=== PATIENT | male | born 1965 | race African-American/Black ===

== ENCOUNTER 2017-12-02 11:03 | Inpatient (IN) | payer OTHER ==
[2017-12-02 11:57] VITALS: BMI 22.9
--- NOTE | 2017-12-02 13:55 | HP ---
CIWA Score - CIWA Score Nausea/Vomitin-No Nausea/No Vomiting Muscle Tremors: 3 Anxiety: 4-Mod. Anxious/Guarded Agitation: 4-Moderately Restless Paroxysmal Sweats: 1-Minimal Palms Moist Orientation: 1-Uncertain about Date Tacttile Disturbances: 1-Very Mild Itch/Numbness Auditory Disturbances: 0-None Visual Disturbances: 0-None Headache: 1-Very Mild CIWA-Ar Total Score: 15 Admission ROS [facility]HS - HPI Chief Complaint: alcohol withdrawal sx Allergies/Adverse Reactions: Allergies Allergy/AdvReac Type Severity Reaction Status Date / Time No Known Allergies Allergy Verified 12/02/17 13:49 History of Present Illness: 52 years old male with long history of alcohol dependence denies medical issue denies mental health issues denies taking medication nor nutrition supplement at home is admitted to detox Exam Limitations: No Limitations - Ebola screening Have you traveled outside of the country in the last 21 days: No Have you had contact with anyone from an Ebola affected area: No Have you been sick,other than usual withdrawal symptoms: No Do you have a fever: No - Review of Systems Constitutional: Loss of Appetite, Changes in sleep, Weight Stable, Unintentional Wgt. Loss EENT: reports: Blurred Vision (need eye glasses) Respiratory: reports: No Symptoms reported Cardiac: reports: No Symptoms Reported GI: reports: Nausea, Poor Appetite, Poor Fluid Intake, Abdominal cramping : reports: No Symptoms Reported Musculoskeletal: reports: No Symptoms Reported Integumentary: reports: No Symptoms Reported Neuro: reports: Tremors Endocrine: reports: No Symptoms Reported Hematology: reports: No Symptoms Reported Psychiatric: reports: Judgement Intact, Mood/Affect Appropiate, Orientated x3 Other Systems: Reviewed and Negative Patient History - Patient Medical History Hx Anemia: No Hx Asthma: No Hx Chronic Obstructive Pulmonary Disease (COPD): No Hx Cardiac Disorders: No Hx Congestive Heart Failure: No Hx Hypertension: No Hx Hypercholesterolemia: No Hx Pacemaker: No HX Cerebrovascular Accident: No Hx Seizures: No Hx Dementia: No Hx Diabetes: No Hx Gastrointestinal Disorders: No Hx Liver Disease: No Hx Genitourinary Disorders: No Hx Sexually Transmitted Disorders: No Hx Renal Disease (ESRD): No Hx Thyroid Disease: No Hx Human Immunodeficiency Virus (HIV): No Hx Hepatitis C: No Hx Depression: No Hx Suicide Attempt: No Hx Bipolar Disorder: No Hx Schizophrenia: No - Patient Surgical History Past Surgical History: Yes Hx Genitourinary Surgery: Yes (hernia right as child) Anesthesia Reaction: No - PPD History Previous Implant?: Yes Documented Results: Negative w/o proof Implanted On Prior R Admission?: No PPD to be Administered?: Yes - Smoking Cessation Smoking history: Current every day smoker Have you smoked in the past 12 months: Yes Aproximately how many cigarettes per day: 3 Cigars Per Day: 0 Hx Chewing Tobacco Use: No Initiated information on smoking cessation: Yes 'Breaking Loose' booklet given: 12/02/17 - Substance & Tx. History Hx Alcohol Use: Yes Hx Substance Use: Yes Substance Use Type: Alcohol, Marijuana Hx Substance Use Treatment: Yes (2005) - Substances Abused Alcohol-rum/vodka/beer Route: Oral Frequency: Daily Amount used: 1-2 pts./1-6 pk. Age of first use: 17 Date of Last Use: 12/01/17 Family Disease History - Family Disease History Family Disease History: Heart Disease: Mother, Sister, [place]: Father, Other: Father Admission Physical Exam S - Vital Signs Vital Signs: Vital Signs - 24 hr 12/02/17 11:54 Temperature 97.1 F L Pulse Rate 59 L Respiratory 18 Rate Blood Pressure 155/93 - Physical General Appearance: Yes: Appropriately Dressed, Mild Distress, Thin, Tremorous, Irritable, Sweating, Anxious HEENTM: Yes: Hearing grossly Normal, Normocephalic, Normal Voice Respiratory: Yes: Chest Non-Tender, Lungs Clear, Normal Breath Sounds, No Respiratory Distress, No Accessory Muscle Use Neck: Yes: Supple, Trachea in good position Breast: Yes: Breasts Symetrical, No Discharge Cardiology: Yes: Regular Rhythm, S1, S2, Bradycardia Abdominal: Yes: Normal Bowel Sounds, Non Tender, Flat Genitourinary: Yes: Within Normal Limits Back: Yes: Normal Inspection Musculoskeletal: Yes: full range of Motion, Gait Steady Extremities: Yes: Normal Inspection, Normal Range of Motion, Non-Tender, Tremors Neurological: Yes: Fully Oriented, Alert, Normal Response Integumentary: Yes: Normal Color, Warm - Diagnostic (1) Alcohol dependence with uncomplicated withdrawal Current Visit: Yes Status: Acute (2) Weight loss Current Visit: Yes Status: Acute (3) Nicotine dependence, uncomplicated Current Visit: Yes Status: Acute Qualifiers: Nicotine product type: cigarettes Qualified Code(s): F17.210 - Nicotine dependence, cigarettes, uncomplicated [facility] Level of Care: Medically Managed Detox Regimen/Protocol: Lib[facility] Breath Alcohol Content Breath Alcohol Content: 0 Urine Drug Screen - Control Is Test Valid: Yes - Results Drug Screen Negative: No Urine Drug Screen Results: THC-Marijuana, KAY-Cocaine
[2017-12-02] MEDS ORDERED: MAGNESIUM CITRATE 300 ML BOTTLE PO PRN (13:57)
[2017-12-02] MEDS ORDERED: guaiFENesin/D-METHORPHAN HB 10 ML UNIT-DOSE CUPS PO PRN (13:57)
[2017-12-02] MEDS ORDERED: IBUPROFEN 400 MG TABLET (FP) PO PRN (13:57)
[2017-12-02] MEDS ORDERED: chlordiazePOXIDE HCL 25 MG CAPSULE PO PRN (13:57)
[2017-12-02] MEDS ORDERED: NICOTINE POLACRILEX 2 MG GUM BUC PRN (13:57)
[2017-12-02] MEDS ORDERED: LOPERAMIDE HCL 2 MG CAPSULE PO PRN (13:57)
[2017-12-02] MEDS ORDERED: P-EPHED 60MG/TRIPROLIDI 2.5MG TABLET PO PRN (13:57)
[2017-12-02] MEDS ORDERED: ACETAMINOPHEN 325 MG TABLET (FP) PO PRN (13:57)
[2017-12-02] MEDS ORDERED: MENTHOL/PHENOL 1 EACH UD MM PRN (13:57)
[2017-12-02] MEDS ORDERED: MAGNESIUM HYDROX 2400MG/30ML ORAL SUSPENSION 30 ML CUP PO PRN (13:57)
[2017-12-02] MEDS: chlordiazePOXIDE HCL 25 MG CAPSULE PO SCH ×2 (17:44→22:44)
[2017-12-02 18:47] LABS: URINE APPEARANCE CLEAR; URINE BILIRUBIN NEGATIVE (<2.0 mg/dL); URINE COLOR LTYELLOW; URINE GLUCOSE (UA) NEGATIVE (NEGATIVE); URINE KETONE NEGATIVE (NEGATIVE); URINE LEUK ESTERASE NEGATIVE (NEGATIVE); URINE NITRITE NEGATIVE (NEGATIVE); URINE PROTEIN NEGATIVE (NEGATIVE)
[2017-12-02] MEDS ORDERED: MELATONIN 5 MG TABLETS PO PRN (22:00)
[2017-12-02] MEDS: THIAMINE HCL 100 MG TABLET (FP) PO SCH (22:44)
[2017-12-03] MEDS: chlordiazePOXIDE HCL 25 MG CAPSULE PO SCH ×3 (05:11→17:22)
[2017-12-03 10:13] LABS: HEMATOCRIT 40.4 % (35.4-49); HEMOGLOBIN 13.3 GM/dL (11.7-16.9); MCH 30.2 pg (25.7-33.7); MCHC 32.8 g/dl (32.0-35.9); MEAN CELL VOLUME 92.1 fl (80-96); MEAN PLT VOLUME 9.5 fl (7.5-11.1); PLATELET COUNT 233 K/MM3 (134-434); RBC 4.38 M/mm3 (4.00-5.60); RDW 14.5 % (11.9-15.9); WHITE BLOOD COUNT 4.6 K/mm3 (4.0-10.0)
[2017-12-03] MEDS: PRENATAL VITAMINS W/ FOLIC ACID TABLET (FP) PO SCH (10:15)
[2017-12-03] MEDS: NICOTINE 14 MG/24 HOURS TOPICAL PATCH TD SCH (10:15)
[2017-12-03 10:46] LABS: ALBUMIN 3.2 g/dl (3.4-5.0); ANION GAP 6 (8-16); BLOOD UREA NITROGEN 13 mg/dL (7-18); CALCIUM 8.4 mg/dL (8.5-10.1); CHLORIDE 107 mmol/L (98-107); CO2 28 mmol/L (21-32); GLUCOSE,RANDOM 92 mg/dL (74-106); POTASSIUM 4.3 mmol/L (3.5-5.1); SGOT/AST 22 U/L (15-37); SGPT/ALT 26 U/L (12-78); SODIUM 141 mmol/L (136-145)
[2017-12-03 10:48] LABS: ALK PHOS 77 U/L (45-117); BILIRUBIN,TOTAL 0.3 mg/dL (0.2-1.0); TOT PROT 5.9 g/dl (6.4-8.2)
--- NOTE | 2017-12-03 10:49 | PN ---
S CIWA - CIWA Score Nausea/Vomitin-Mild Nausea/No Vomiting Muscle Tremors: 4-Moderate,w/Arms Extend Anxiety: 3 Agitation: 4-Moderately Restless Paroxysmal Sweats: 1-Minimal Palms Moist Orientation: 0-Oriented Tacttile Disturbances: 1-Very Mild Itch/Numbness Auditory Disturbances: 0-None Visual Disturbances: 0-None Headache: 0-None Present CIWA-Ar Total Score: 14 BHS Progress Note (SOAP) Subjective: sweat tremor anxiety restlessness irritable Objective: 12/03/17 10:48 Vital Signs Temperature 97 F L 12/03/17 09:26 Pulse Rate 61 12/03/17 09:26 Respiratory Rate 18 12/03/17 09:26 Blood Pressure 142/82 12/03/17 09:26 O2 Sat by Pulse Oximetry (%) Laboratory Last Values WBC 4.6 K/mm3 (4.0-10.0) 12/03/17 07:37 RBC 4.38 M/mm3 (4.00-5.60) 12/03/17 07:37 Hgb 13.3 GM/dL (11.7-16.9) 12/03/17 07:37 Hct 40.4 % (35.4-49) 12/03/17 07:37 MCV 92.1 fl (80-96) 12/03/17 07:37 MCH 30.2 pg (25.7-33.7) 12/03/17 07:37 MCHC 32.8 g/dl (32.0-35.9) 12/03/17 07:37 RDW 14.5 % (11.9-15.9) 12/03/17 07:37 Plt Count 233 K/MM3 (134-434) 12/03/17 07:37 MPV 9.5 fl (7.5-11.1) 12/03/17 07:37 Urine Color Ltyellow 12/02/17 17:30 Urine Appearance Clear 12/02/17 17:30 Urine pH 6.0 (5.0-8.0) 12/02/17 17:30 Ur Specific [place] 1.020 (1.001-1.035) 12/02/17 17:30 Urine Protein Negative (NEGATIVE) 12/02/17 17:30 Urine Glucose (UA) Negative (NEGATIVE) 12/02/17 17:30 Urine Ketones Negative (NEGATIVE) 12/02/17 17:30 Urine Blood Negative (NEGATIVE) 12/02/17 17:30 Urine Nitrite Negative (NEGATIVE) 12/02/17 17:30 Urine Bilirubin Negative (<2.0 mg/dL) 12/02/17 17:30 Urine Urobilinogen 2.0 mg/dL (0.2-1.0) 12/02/17 17:30 Ur Leukocyte Esterase Negative (NEGATIVE) 12/02/17 17:30 lab noted Assessment: 12/03/17 10:49 withdrawal sx Plan: continue detox
[2017-12-03] MEDS ORDERED: PNEUMOCOCCAL 23 VACCINE 0.5 ML VIAL IM ONE (12:00)
[2017-12-03] MEDS ORDERED: PNEUMOC 13-VAL CONJ-DIP CRM/PF 0.5 ML DISP.SYRIN IM ONE (12:00)
--- NOTE | 2017-12-03 12:09 | EKG ---
Test Reason : Blood Pressure : / mmHG Vent. Rate : 054 BPM Atrial Rate : 054 BPM P-R Int : 148 ms QRS Dur : 072 ms QT Int : 454 ms P-R-T Axes : 073 066 077 degrees QTc Int : 430 ms SINUS BRADYCARDIA VOLTAGE CRITERIA FOR LEFT VENTRICULAR HYPERTROPHY CANNOT RULE OUT SEPTAL INFARCT , AGE UNDETERMINED ABNORMAL ECG Confirmed by MD CORRY, MANDI ([id number]) on 12/03/2017 12:09:17 PM Referred By: Confirmed By:MANDI WHEATLEY MD
[2017-12-03] MEDS: MAG HYDROX/AL HYDROX/SIMETH 30 ML UNIT-DOSE CUP PO PRN (18:52)
[2017-12-03] MEDS: THIAMINE HCL 100 MG TABLET (FP) PO SCH (22:54)
[2017-12-04] MEDS: chlordiazePOXIDE HCL 25 MG CAPSULE PO SCH ×3 (06:00→11:00)
--- NOTE | 2017-12-04 10:08 | PN ---
S CIWA - CIWA Score Nausea/Vomitin-Mild Nausea/No Vomiting Muscle Tremors: 4-Moderate,w/Arms Extend Anxiety: 3 Agitation: 3 Paroxysmal Sweats: 1-Minimal Palms Moist Orientation: 0-Oriented Tacttile Disturbances: 1-Very Mild Itch/Numbness Auditory Disturbances: 0-None Visual Disturbances: 0-None Headache: 0-None Present CIWA-Ar Total Score: 13 BHS Progress Note (SOAP) Subjective: sweat tremor restlessness anxiety irritable Objective: 12/04/17 10:14 Vital Signs Temperature 96.9 F L 12/04/17 09:13 Pulse Rate 66 12/04/17 09:13 Respiratory Rate 16 12/04/17 09:13 Blood Pressure 132/90 12/04/17 09:13 O2 Sat by Pulse Oximetry (%) Laboratory Last Values WBC 4.6 K/mm3 (4.0-10.0) 12/03/17 07:37 RBC 4.38 M/mm3 (4.00-5.60) 12/03/17 07:37 Hgb 13.3 GM/dL (11.7-16.9) 12/03/17 07:37 Hct 40.4 % (35.4-49) 12/03/17 07:37 MCV 92.1 fl (80-96) 12/03/17 07:37 MCH 30.2 pg (25.7-33.7) 12/03/17 07:37 MCHC 32.8 g/dl (32.0-35.9) 12/03/17 07:37 RDW 14.5 % (11.9-15.9) 12/03/17 07:37 Plt Count 233 K/MM3 (134-434) 12/03/17 07:37 MPV 9.5 fl (7.5-11.1) 12/03/17 07:37 Sodium 141 mmol/L (136-145) 12/03/17 07:37 Potassium 4.3 mmol/L (3.5-5.1) 12/03/17 07:37 Chloride 107 mmol/L (98-107) 12/03/17 07:37 Carbon Dioxide 28 mmol/L (21-32) 12/03/17 07:37 Anion Gap 6 (8-16) L 12/03/17 07:37 BUN 13 mg/dL (7-18) 12/03/17 07:37 Creatinine 1.0 mg/dL (0.7-1.3) 12/03/17 07:37 Creat Clearance w eGFR > 60 (>60) 12/03/17 07:37 Random Glucose 92 mg/dL (74-106) 12/03/17 07:37 Calcium 8.4 mg/dL (8.5-10.1) L 12/03/17 07:37 Total Bilirubin 0.3 mg/dL (0.2-1.0) 12/03/17 07:37 AST 22 U/L (15-37) 12/03/17 07:37 ALT 26 U/L (12-78) 12/03/17 07:37 Alkaline Phosphatase 77 U/L (45-117) 12/03/17 07:37 Total Protein 5.9 g/dl (6.4-8.2) L 12/03/17 07:37 Albumin 3.2 g/dl (3.4-5.0) L 12/03/17 07:37 Urine Color Ltyellow 12/02/17 17:30 Urine Appearance Clear 12/02/17 17:30 Urine pH 6.0 (5.0-8.0) 12/02/17 17:30 Ur Specific [place] 1.020 (1.001-1.035) 12/02/17 17:30 Urine Protein Negative (NEGATIVE) 12/02/17 17:30 Urine Glucose (UA) Negative (NEGATIVE) 12/02/17 17:30 Urine Ketones Negative (NEGATIVE) 12/02/17 17:30 Urine Blood Negative (NEGATIVE) 12/02/17 17:30 Urine Nitrite Negative (NEGATIVE) 12/02/17 17:30 Urine Bilirubin Negative (<2.0 mg/dL) 12/02/17 17:30 Urine Urobilinogen 2.0 mg/dL (0.2-1.0) 12/02/17 17:30 Ur Leukocyte Esterase Negative (NEGATIVE) 12/02/17 17:30 HIV 1&2 Antibody Screen Negative 12/03/17 07:37 HIV P24 Antigen Negative 12/03/17 07:37 lab noted Assessment: 12/04/17 10:14 withdrawal sx Plan: continue detox
[2017-12-04] MEDS: PRENATAL VITAMINS W/ FOLIC ACID TABLET (FP) PO SCH (10:24)
[2017-12-04] MEDS: NICOTINE 14 MG/24 HOURS TOPICAL PATCH TD SCH (11:18)
[2017-12-04] MEDS: chlordiazePOXIDE 5 MG CAPSULE PO SCH ×2 (17:09→23:32)
[2017-12-04] MEDS: MAG HYDROX/AL HYDROX/SIMETH 30 ML UNIT-DOSE CUP PO PRN (19:10)
[2017-12-04] MEDS: THIAMINE HCL 100 MG TABLET (FP) PO SCH (23:31)
[2017-12-05] MEDS: chlordiazePOXIDE 5 MG CAPSULE PO SCH ×2 (07:52→10:58)
--- NOTE | 2017-12-05 10:42 | PN ---
BHS Progress Note (SOAP) Subjective: feeling better no tremor less sweat sleep better at night discuss lab results with the patient Objective: 12/05/17 10:48 Vital Signs Temperature 97.1 F L 12/05/17 07:41 Pulse Rate 64 12/05/17 07:41 Respiratory Rate 18 12/05/17 07:41 Blood Pressure 120/100 12/05/17 07:41 O2 Sat by Pulse Oximetry (%) Laboratory Last Values WBC 4.6 K/mm3 (4.0-10.0) 12/03/17 07:37 RBC 4.38 M/mm3 (4.00-5.60) 12/03/17 07:37 Hgb 13.3 GM/dL (11.7-16.9) 12/03/17 07:37 Hct 40.4 % (35.4-49) 12/03/17 07:37 MCV 92.1 fl (80-96) 12/03/17 07:37 MCH 30.2 pg (25.7-33.7) 12/03/17 07:37 MCHC 32.8 g/dl (32.0-35.9) 12/03/17 07:37 RDW 14.5 % (11.9-15.9) 12/03/17 07:37 Plt Count 233 K/MM3 (134-434) 12/03/17 07:37 MPV 9.5 fl (7.5-11.1) 12/03/17 07:37 Sodium 141 mmol/L (136-145) 12/03/17 07:37 Potassium 4.3 mmol/L (3.5-5.1) 12/03/17 07:37 Chloride 107 mmol/L (98-107) 12/03/17 07:37 Carbon Dioxide 28 mmol/L (21-32) 12/03/17 07:37 Anion Gap 6 (8-16) L 12/03/17 07:37 BUN 13 mg/dL (7-18) 12/03/17 07:37 Creatinine 1.0 mg/dL (0.7-1.3) 12/03/17 07:37 Creat Clearance w eGFR > 60 (>60) 12/03/17 07:37 Random Glucose 92 mg/dL (74-106) 12/03/17 07:37 Calcium 8.4 mg/dL (8.5-10.1) L 12/03/17 07:37 Total Bilirubin 0.3 mg/dL (0.2-1.0) 12/03/17 07:37 AST 22 U/L (15-37) 12/03/17 07:37 ALT 26 U/L (12-78) 12/03/17 07:37 Alkaline Phosphatase 77 U/L (45-117) 12/03/17 07:37 Total Protein 5.9 g/dl (6.4-8.2) L 12/03/17 07:37 Albumin 3.2 g/dl (3.4-5.0) L 12/03/17 07:37 Urine Color Ltyellow 12/02/17 17:30 Urine Appearance Clear 12/02/17 17:30 Urine pH 6.0 (5.0-8.0) 12/02/17 17:30 Ur Specific [place] 1.020 (1.001-1.035) 12/02/17 17:30 Urine Protein Negative (NEGATIVE) 12/02/17 17:30 Urine Glucose (UA) Negative (NEGATIVE) 12/02/17 17:30 Urine Ketones Negative (NEGATIVE) 12/02/17 17:30 Urine Blood Negative (NEGATIVE) 12/02/17 17:30 Urine Nitrite Negative (NEGATIVE) 12/02/17 17:30 Urine Bilirubin Negative (<2.0 mg/dL) 12/02/17 17:30 Urine Urobilinogen 2.0 mg/dL (0.2-1.0) 12/02/17 17:30 Ur Leukocyte Esterase Negative (NEGATIVE) 12/02/17 17:30 RPR Titer Nonreactive (NONREACTIVE) 12/03/17 07:37 HIV 1&2 Antibody Screen Negative 12/03/17 07:37 HIV P24 Antigen Negative 12/03/17 07:37 lab noted discuss lab results with the patient health teaching on safe sex Assessment: 12/05/17 10:49 Vital Signs Temperature 97.1 F L 12/05/17 07:41 Pulse Rate 64 12/05/17 07:41 Respiratory Rate 18 12/05/17 07:41 Blood Pressure 120/100 12/05/17 07:41 O2 Sat by Pulse Oximetry (%) Laboratory Last Values WBC 4.6 K/mm3 (4.0-10.0) 12/03/17 07:37 RBC 4.38 M/mm3 (4.00-5.60) 12/03/17 07:37 Hgb 13.3 GM/dL (11.7-16.9) 12/03/17 07:37 Hct 40.4 % (35.4-49) 12/03/17 07:37 MCV 92.1 fl (80-96) 12/03/17 07:37 MCH 30.2 pg (25.7-33.7) 12/03/17 07:37 MCHC 32.8 g/dl (32.0-35.9) 12/03/17 07:37 RDW 14.5 % (11.9-15.9) 12/03/17 07:37 Plt Count 233 K/MM3 (134-434) 12/03/17 07:37 MPV 9.5 fl (7.5-11.1) 12/03/17 07:37 Sodium 141 mmol/L (136-145) 12/03/17 07:37 Potassium 4.3 mmol/L (3.5-5.1) 12/03/17 07:37 Chloride 107 mmol/L (98-107) 12/03/17 07:37 Carbon Dioxide 28 mmol/L (21-32) 12/03/17 07:37 Anion Gap 6 (8-16) L 12/03/17 07:37 BUN 13 mg/dL (7-18) 12/03/17 07:37 Creatinine 1.0 mg/dL (0.7-1.3) 12/03/17 07:37 Creat Clearance w eGFR > 60 (>60) 12/03/17 07:37 Random Glucose 92 mg/dL (74-106) 12/03/17 07:37 Calcium 8.4 mg/dL (8.5-10.1) L 12/03/17 07:37 Total Bilirubin 0.3 mg/dL (0.2-1.0) 12/03/17 07:37 AST 22 U/L (15-37) 12/03/17 07:37 ALT 26 U/L (12-78) 12/03/17 07:37 Alkaline Phosphatase 77 U/L (45-117) 12/03/17 07:37 Total Protein 5.9 g/dl (6.4-8.2) L 12/03/17 07:37 Albumin 3.2 g/dl (3.4-5.0) L 12/03/17 07:37 Urine Color Ltyellow 12/02/17 17:30 Urine Appearance Clear 12/02/17 17:30 Urine pH 6.0 (5.0-8.0) 12/02/17 17:30 Ur Specific [place] 1.020 (1.001-1.035) 12/02/17 17:30 Urine Protein Negative (NEGATIVE) 12/02/17 17:30 Urine Glucose (UA) Negative (NEGATIVE) 12/02/17 17:30 Urine Ketones Negative (NEGATIVE) 12/02/17 17:30 Urine Blood Negative (NEGATIVE) 12/02/17 17:30 Urine Nitrite Negative (NEGATIVE) 12/02/17 17:30 Urine Bilirubin Negative (<2.0 mg/dL) 12/02/17 17:30 Urine Urobilinogen 2.0 mg/dL (0.2-1.0) 12/02/17 17:30 Ur Leukocyte Esterase Negative (NEGATIVE) 12/02/17 17:30 RPR Titer Nonreactive (NONREACTIVE) 12/03/17 07:37 HIV 1&2 Antibody Screen Negative 12/03/17 07:37 HIV P24 Antigen Negative 12/03/17 07:37 mild withdrawal sx 12/05/17 10:49 Plan: medically supervised detox
[2017-12-05] MEDS: NICOTINE 14 MG/24 HOURS TOPICAL PATCH TD SCH (10:58)
[2017-12-05] MEDS: PRENATAL VITAMINS W/ FOLIC ACID TABLET (FP) PO SCH (10:58)
[2017-12-05] MEDS: chlordiazePOXIDE HCL 10 MG CAPSULE PO SCH ×2 (17:31→22:20)
[2017-12-05] MEDS: THIAMINE HCL 100 MG TABLET (FP) PO SCH (22:21)
[2017-12-06] MEDS: chlordiazePOXIDE HCL 10 MG CAPSULE PO SCH (07:01)
[2017-12-06 07:41] VITALS: BP 112/76; PULSE 73; TEMP 97.3
--- NOTE | 2017-12-06 08:25 | DS ---
[facility] Detox Discharge Summary Admission Date: 12/02/17 Discharge Date: 12/06/17 - History Present History: Alcohol Dependence Additional Comments: Patient medially stable. Reinforced the importance to follow up with out patient programs and follow up with Primary Care Provider upon discharge. If worsening symptoms are present patient to follow up with ED, urgent care or PCP . Patient verbalizes understanding. Pertinent Past History: Vital Signs Temperature 97.3 F L 12/06/17 07:40 Pulse Rate 73 12/06/17 07:40 Respiratory Rate 18 12/06/17 07:40 Blood Pressure 112/76 12/06/17 07:40 O2 Sat by Pulse Oximetry (%) Laboratory Last Values WBC 4.6 K/mm3 (4.0-10.0) 12/03/17 07:37 RBC 4.38 M/mm3 (4.00-5.60) 12/03/17 07:37 Hgb 13.3 GM/dL (11.7-16.9) 12/03/17 07:37 Hct 40.4 % (35.4-49) 12/03/17 07:37 MCV 92.1 fl (80-96) 12/03/17 07:37 MCH 30.2 pg (25.7-33.7) 12/03/17 07:37 MCHC 32.8 g/dl (32.0-35.9) 12/03/17 07:37 RDW 14.5 % (11.9-15.9) 12/03/17 07:37 Plt Count 233 K/MM3 (134-434) 12/03/17 07:37 MPV 9.5 fl (7.5-11.1) 12/03/17 07:37 Sodium 141 mmol/L (136-145) 12/03/17 07:37 Potassium 4.3 mmol/L (3.5-5.1) 12/03/17 07:37 Chloride 107 mmol/L (98-107) 12/03/17 07:37 Carbon Dioxide 28 mmol/L (21-32) 12/03/17 07:37 Anion Gap 6 (8-16) L 12/03/17 07:37 BUN 13 mg/dL (7-18) 12/03/17 07:37 Creatinine 1.0 mg/dL (0.7-1.3) 12/03/17 07:37 Creat Clearance w eGFR > 60 (>60) 12/03/17 07:37 Random Glucose 92 mg/dL (74-106) 12/03/17 07:37 Calcium 8.4 mg/dL (8.5-10.1) L 12/03/17 07:37 Total Bilirubin 0.3 mg/dL (0.2-1.0) 12/03/17 07:37 AST 22 U/L (15-37) 12/03/17 07:37 ALT 26 U/L (12-78) 12/03/17 07:37 Alkaline Phosphatase 77 U/L (45-117) 12/03/17 07:37 Total Protein 5.9 g/dl (6.4-8.2) L 12/03/17 07:37 Albumin 3.2 g/dl (3.4-5.0) L 12/03/17 07:37 Urine Color Ltyellow 12/02/17 17:30 Urine Appearance Clear 12/02/17 17:30 Urine pH 6.0 (5.0-8.0) 12/02/17 17:30 Ur Specific [place] 1.020 (1.001-1.035) 12/02/17 17:30 Urine Protein Negative (NEGATIVE) 12/02/17 17:30 Urine Glucose (UA) Negative (NEGATIVE) 12/02/17 17:30 Urine Ketones Negative (NEGATIVE) 12/02/17 17:30 Urine Blood Negative (NEGATIVE) 12/02/17 17:30 Urine Nitrite Negative (NEGATIVE) 12/02/17 17:30 Urine Bilirubin Negative (<2.0 mg/dL) 12/02/17 17:30 Urine Urobilinogen 2.0 mg/dL (0.2-1.0) 12/02/17 17:30 Ur Leukocyte Esterase Negative (NEGATIVE) 12/02/17 17:30 RPR Titer Nonreactive (NONREACTIVE) 12/03/17 07:37 HIV 1&2 Antibody Screen Negative 12/03/17 07:37 HIV P24 Antigen Negative 12/03/17 07:37 - Physical Exam Results Vital Signs: Vital Signs Temperature 97.3 F L 12/06/17 07:40 Pulse Rate 73 12/06/17 07:40 Respiratory Rate 18 12/06/17 07:40 Blood Pressure 112/76 12/06/17 07:40 O2 Sat by Pulse Oximetry (%) - Treatment Hospital Course: Detox Protocol Followed, Detoxed Safely, Responded well, Discharged Condition Good Patient has Accepted a Rehab Referral to: out patient programs - Medication Discharge Medications: Ambulatory Orders NK [No Known Home Medication] 12/02/17 - Diagnosis (1) Alcohol dependence with uncomplicated withdrawal Current Visit: Yes Status: Acute (2) Nicotine dependence, uncomplicated Current Visit: Yes Status: Acute Qualifiers: Nicotine product type: cigarettes Qualified Code(s): F17.210 - Nicotine dependence, cigarettes, uncomplicated (3) Weight loss Current Visit: Yes Status: Acute - AMA Did Patient Leave Against Medical Advice: No
== END 2017-12-06 09:32 | disposition home or self-care (01) | DRG 775 ==
LOC: YASAS 11:03 → Y6N 15:10
PROVIDERS: ADMIT Surgery; ATTEND Surgery
PROC: HZ2ZZZZ Detoxification Services for Substance Abuse Treatment (ICD-10-PCS; principal; 2017-12-02)
DX: F10.230 Alcohol dependence with withdrawal, uncomplicated (principal); F17.210 Nicotine dependence, cigarettes, uncomplicated; R63.4 Abnormal weight loss; Z68.23 Body mass index [BMI] 23.0-23.9, adult
CPT/HCPCS: 36415; 80053; 81003; 85027; 86593; 87389; 90732; 93005; 93010; G0009

== ENCOUNTER 2018-09-18 11:27 | Inpatient (IN) | payer OTHER ==
[2018-09-18 12:20] VITALS: BMI 23.3
--- NOTE | 2018-09-18 13:54 | HP ---
CIWA Score - Admission Criteria [facility] Guidelines: Admission for Medically Managed Detox: Requires at least one of the followin. CIWA greater than 12 2. Seizures within the past 24 hours 3. Delirium tremens within the past 24 hours 4. Hallucinations within the past 24 hours 5. Acute intervention needed for co occurring medical disorder 6. Acute intervention needed for co occurring psychiatric disorder 7. Severe withdrawal that cannot be handled at a lower level of care (continued vomiting, continued diarrhea, abnormal vital signs) requiring intravenous medication and/or fluids 8. Admission ROS [facility] - HPI Chief Complaint: i need help to stop using crack and marijuana,drink alcohol Allergies/Adverse Reactions: Allergies Allergy/AdvReac Type Severity Reaction Status Date / Time No Known Allergies Allergy Verified 09/18/18 12:12 History of Present Illness: this 53 years old male with cocaine and marijuana dependence,alcohol abused, seeking help,attending outpatient program last inpatient treatment in [facility] 12/02/17 to 12/06/17 fail out patient program,need help Exam Limitations: No Limitations - Ebola screening Have you traveled outside of the country in the last 21 days: No Have you had contact with anyone from an Ebola affected area: No Do you have a fever: No - Review of Systems Constitutional: No Symptoms Reported EENT: reports: No Symptoms Reported Respiratory: reports: No Symptoms reported Cardiac: reports: No Symptoms Reported GI: reports: No Symptoms Reported : reports: No Symptoms Reported Musculoskeletal: reports: No Symptoms Reported Integumentary: reports: No Symptoms Reported Neuro: reports: No Symptoms reported Endocrine: reports: No Symptoms Reported Hematology: reports: No Symptoms Reported Psychiatric: reports: No Sypmtoms Reported, Judgement Intact, Mood/Affect Appropiate, Orientated x3 Other Systems: Reviewed and Negative Patient History - Patient Medical History Hx Anemia: No Hx Asthma: No Hx Chronic Obstructive Pulmonary Disease (COPD): No Hx Cardiac Disorders: No Hx Congestive Heart Failure: No Hx Hypertension: No Hx Hypercholesterolemia: No Hx Pacemaker: No HX Cerebrovascular Accident: No Hx Seizures: No Hx Dementia: No Hx Diabetes: No Hx Gastrointestinal Disorders: No Hx Liver Disease: No Hx Genitourinary Disorders: No Hx Sexually Transmitted Disorders: No Hx Renal Disease (ESRD): No Hx Thyroid Disease: No Hx Human Immunodeficiency Virus (HIV): No (last 09/15/18) Hx Hepatitis C: No Hx Depression: No Hx Suicide Attempt: No Hx Bipolar Disorder: No Hx Schizophrenia: No Other Medical History: no suicidal,no homicidal - Patient Surgical History Past Surgical History: Yes Hx Neurologic Surgery: No Hx Cataract Extraction: No Hx Cardiac Surgery: No Hx Lung Surgery: No Hx Breast Surgery: No Hx Breast Biopsy: No Hx Abdominal Surgery: No Hx Appendectomy: No Hx Cholecystectomy: No Hx Genitourinary Surgery: Yes (hernia right as child ) Hx Section: No Hx Orthopedic Surgery: No Anesthesia Reaction: No - PPD History Previous Implant?: Yes Documented Results: Negative w/proof Implanted On Prior R Admission?: Yes Date: 12/04/17 - Smoking Cessation Smoking history: Current every day smoker Have you smoked in the past 12 months: Yes Aproximately how many cigarettes per day: 3 Cigars Per Day: 0 Hx Chewing Tobacco Use: No Initiated information on smoking cessation: Yes 'Breaking Loose' booklet given: 09/18/18 - Substance & Tx. History Hx Alcohol Use: Yes Hx Substance Use: Yes Substance Use Type: Alcohol, Cocaine, Marijuana Hx Substance Use Treatment: Yes ([facility] 12/02/17 to 12/06/17) - Substances abused Alcohol Substance route: Oral Frequency: 3-6 times per week Amount used: 1 pt. terri, 1 pt. vodka, 2 beers ( 16 oz) Age of first use: 17 Date of last use: 09/17/18 Cocaine Substance route: Smoking Frequency: Daily Amount used: 1 bag Age of first use: 19 Date of last use: 09/17/18 Crack Substance route: Smoking Frequency: Daily Amount used: 1 bag Age of first use: 19 Date of last use: 09/17/18 Marijuana/Hashish Substance route: Smoking Frequency: Daily Amount used: 3 bags Age of first use: 17 Date of last use: 09/17/18 Family Disease History - Family Disease History Family Disease History: Heart Disease: Mother, Sister, [place]: Father, Other: Father Admission Physical Exam [facility] - Vital Signs Vital Signs: Vital Signs - 24 hr 09/18/18 09/18/18 12:13 12:51 Temperature 98 F 98 F Pulse Rate 73 73 Respiratory 18 18 Rate Blood Pressure 147/102 H 147/102 H - Physical General Appearance: Yes: Within Normal Limits HEENTM: Yes: Normal ENT Inspection, LILLI, Pharynx Normal Respiratory: Yes: Lungs Clear, Normal Breath Sounds, No Respiratory Distress Neck: Yes: Within Normal Limits, Supple, Trachea in good position Breast: Yes: Within Normal Limits Cardiology: Yes: Within Normal Limits, Regular Rhythm, Regular Rate, S1, S2 Abdominal: Yes: Within Normal Limits, Normal Bowel Sounds, Non Tender, Soft Genitourinary: Yes: Within Normal Limits Back: Yes: Muscle Spasm Musculoskeletal: Yes: Back pain, Muscle Pain Extremities: Yes: Tremors Neurological: Yes: Within Normal Limits, guest laundry attendant II-XII NML intact, Alert, Motor Strength 5/5 Integumentary: Yes: Dry Lymphatic: Yes: Within Normal Limits - Diagnostic (1) Alcohol dependence Current Visit: Yes Status: Acute (2) Cannabis dependence Current Visit: Yes Status: Acute (3) Cocaine dependence Current Visit: Yes Status: Acute (4) Nicotine dependence Current Visit: Yes Status: Acute Cleared for Admission [facility] - Detox or Rehab Claeared for Rehab Admission: Yes Breathalyzer - Breathalyzer Breathalyzer: 0 Urine Drug Screen - Test Device Lot number: [id number] Expiration date: 04/25/20 - Control Is test valid?: Yes - Results Drug screen NEGATIVE: No Urine drug screen results: THC-Marijuana, KAY-Cocaine, MET-Methamphetamine Inpatient Rehab Admission - Rehab Decision to Admit Inpatient rehab admission?: Yes - Initial Determination Are CD services needed?: Yes Free of communicable disease: Yes Not in need of hospitalization: Yes - Rehab Admission Criteria Previous failed treatment: Yes Poor recovery environment: Yes Comorbidities: Yes Lacks judgement: No Patient is meeting Inpatient Rehab admission criteria:: Yes
[2018-09-18] MEDS ORDERED: LOPERAMIDE HCL 2 MG CAPSULE PO PRN (14:11)
[2018-09-18] MEDS ORDERED: guaiFENesin 200 MG/10 ML 10 ML UNIT-DOSE CUPS PO PRN (14:11)
[2018-09-18] MEDS ORDERED: MAGNESIUM HYDROX 2400MG/30ML ORAL SUSPENSION 30 ML CUP PO PRN (14:11)
[2018-09-18] MEDS ORDERED: MAGNESIUM CITRATE 300 ML BOTTLE PO PRN (14:11)
[2018-09-18] MEDS ORDERED: hydrOXYzine PAMOATE 50 MG CAPSULE (FP) PO PRN (14:11)
[2018-09-18] MEDS ORDERED: P-EPHED 60MG/TRIPROLIDI 2.5MG TABLET PO PRN (14:11)
[2018-09-18] MEDS ORDERED: MENTHOL/PHENOL 1 EACH UD MM PRN (14:11)
[2018-09-18] MEDS ORDERED: TUBERCULIN PPD 5 TU/0.1ML VIAL ID ONE (15:34)
[2018-09-18 16:56] LABS: HEMATOCRIT 44.2 % (35.4-49); HEMOGLOBIN 14.5 GM/dL (11.7-16.9); MCHC 32.8 g/dl (32.0-35.9); MEAN CELL VOLUME 91.4 fl (80-96); MEAN PLT VOLUME 9.5 fl (7.5-11.1); PLATELET COUNT 288 K/MM3 (134-434); RBC 4.84 M/mm3 (4.00-5.60); RDW 14.7 % (11.9-15.9); WHITE BLOOD COUNT 6.5 K/mm3 (4.0-10.0)
[2018-09-18 17:03] LABS: ALBUMIN 4.3 g/dl (3.4-5.0); ALK PHOS 107 U/L (45-117); ANION GAP 9 MMOL/L (8-16); BILIRUBIN,TOTAL 1.1 mg/dL (0.2-1); BLOOD UREA NITROGEN 22 mg/dL (7-18); CALCIUM 9.7 mg/dL (8.5-10.1); CHLORIDE 102 mmol/L (98-107); CO2 26 mmol/L (21-32); CREATININE 1.3 mg/dL (0.55-1.3); GLUCOSE,RANDOM 93 mg/dL (74-106); POTASSIUM 4.6 mmol/L (3.5-5.1); SGOT/AST 44 U/L (15-37); SGPT/ALT 33 U/L (13-61); SODIUM 137 mmol/L (136-145); TOT PROT 8.2 g/dl (6.4-8.2)
[2018-09-18] MEDS: METHOCARBAMOL 500 MG TABLET PO PRN (18:57)
[2018-09-18] MEDS: THIAMINE HCL 100 MG TABLET (FP) PO SCH (21:11)
[2018-09-18] MEDS ORDERED: MELATONIN 5 MG TABLETS PO PRN (22:00)
[2018-09-19] MEDS: PRENATAL VITAMINS W/ FOLIC ACID TABLET (FP) PO SCH (09:45)
[2018-09-19] MEDS: METHOCARBAMOL 500 MG TABLET PO PRN ×2 (09:45→23:34)
[2018-09-19 12:51] LABS: EPI CELLS 0.7 /HPF (0-5/HPF); URINE APPEARANCE CLEAR; URINE BACTERIA 0.8 /hpf (NEGATIVE); URINE BILIRUBIN NEGATIVE (NEGATIVE); URINE CASTS 5 /lpf (0-8); URINE COLOR DK YELLOW; URINE GLUCOSE (UA) NEGATIVE (NEGATIVE); URINE KETONE TRACE (NEGATIVE); URINE LEUK ESTERASE NEGATIVE (NEGATIVE); URINE NITRITE NEGATIVE (NEGATIVE); URINE PROTEIN TRACE (NEGATIVE); URINE RBC 5 /hpf (0-4); URINE WBC 1 /hpf (0-5)
[2018-09-19] MEDS: THIAMINE HCL 100 MG TABLET (FP) PO SCH (21:47)
[2018-09-20] MEDS: METHOCARBAMOL 500 MG TABLET PO PRN ×2 (08:33→21:16)
[2018-09-20] MEDS: PRENATAL VITAMINS W/ FOLIC ACID TABLET (FP) PO SCH (10:05)
[2018-09-20] MEDS: THIAMINE HCL 100 MG TABLET (FP) PO SCH (21:16)
[2018-09-21] MEDS: PRENATAL VITAMINS W/ FOLIC ACID TABLET (FP) PO SCH (09:53)
[2018-09-21] MEDS: METHOCARBAMOL 500 MG TABLET PO PRN ×2 (09:53→21:37)
[2018-09-21] MEDS: THIAMINE HCL 100 MG TABLET (FP) PO SCH (21:36)
[2018-09-22] MEDS ORDERED: COLLOIDAL OATMEAL 1 BAR EACH TP PRN (09:37)
[2018-09-22] MEDS: PRENATAL VITAMINS W/ FOLIC ACID TABLET (FP) PO SCH (09:50)
[2018-09-22] MEDS: METHOCARBAMOL 500 MG TABLET PO PRN ×2 (09:51→21:24)
[2018-09-22] MEDS: THIAMINE HCL 100 MG TABLET (FP) PO SCH (21:24)
[2018-09-23] MEDS: PRENATAL VITAMINS W/ FOLIC ACID TABLET (FP) PO SCH (10:15)
[2018-09-23] MEDS: METHOCARBAMOL 500 MG TABLET PO PRN ×2 (10:16→21:45)
[2018-09-23] MEDS: MAG HYDROX/AL HYDROX/SIMETH 30 ML UNIT-DOSE CUP PO PRN ×2 (11:00→21:45)
[2018-09-23] MEDS: THIAMINE HCL 100 MG TABLET (FP) PO SCH (21:45)
[2018-09-24] MEDS: METHOCARBAMOL 500 MG TABLET PO PRN (10:09)
[2018-09-24] MEDS: PRENATAL VITAMINS W/ FOLIC ACID TABLET (FP) PO SCH (10:09)
[2018-09-24] MEDS: MAG HYDROX/AL HYDROX/SIMETH 30 ML UNIT-DOSE CUP PO PRN ×2 (10:40→17:03)
--- NOTE | 2018-09-24 13:19 | PN ---
S Progress Note (SOAP) Subjective: patient c/i left shoulder pain. Injury 4 months ago when he bumped into a pole. Objective: Non-tender to palpation, no swelling noted. Full ROM without pain. Strength equal bilaterally. 09/24/18 13:18 Assessment: Possible degenerative joint disease. 09/24/18 13:16 Plan: Advised patient to seek orthopedic care when discharged for evaluation and treatment. Urged patient to take motrin and muscle relaxant medication as needed.
[2018-09-24] MEDS: THIAMINE HCL 100 MG TABLET (FP) PO SCH (21:43)
[2018-09-25] MEDS: METHOCARBAMOL 500 MG TABLET PO PRN (10:02)
[2018-09-25] MEDS: PRENATAL VITAMINS W/ FOLIC ACID TABLET (FP) PO SCH (10:02)
[2018-09-25] MEDS: ACETAMINOPHEN 325 MG TABLET (FP) PO PRN ×2 (10:03→21:16)
[2018-09-25] MEDS: MAG HYDROX/AL HYDROX/SIMETH 30 ML UNIT-DOSE CUP PO PRN (19:59)
[2018-09-25] MEDS: THIAMINE HCL 100 MG TABLET (FP) PO SCH (21:16)
[2018-09-26] MEDS: METHOCARBAMOL 500 MG TABLET PO PRN ×2 (09:40→21:11)
[2018-09-26] MEDS: PRENATAL VITAMINS W/ FOLIC ACID TABLET (FP) PO SCH (09:40)
[2018-09-26] MEDS: ACETAMINOPHEN 325 MG TABLET (FP) PO PRN (09:41)
[2018-09-26] MEDS: MAG HYDROX/AL HYDROX/SIMETH 30 ML UNIT-DOSE CUP PO PRN (16:03)
[2018-09-26] MEDS: THIAMINE HCL 100 MG TABLET (FP) PO SCH (21:10)
[2018-09-26] MEDS: IBUPROFEN 400 MG TABLET (FP) PO PRN (21:11)
[2018-09-27] MEDS: METHOCARBAMOL 500 MG TABLET PO PRN ×2 (10:08→21:14)
[2018-09-27] MEDS: ACETAMINOPHEN 325 MG TABLET (FP) PO PRN ×2 (10:08→21:14)
[2018-09-27] MEDS: PRENATAL VITAMINS W/ FOLIC ACID TABLET (FP) PO SCH (10:09)
[2018-09-27] MEDS: THIAMINE HCL 100 MG TABLET (FP) PO SCH (21:47)
[2018-09-28] MEDS: PRENATAL VITAMINS W/ FOLIC ACID TABLET (FP) PO SCH (11:01)
[2018-09-28] MEDS: IBUPROFEN 400 MG TABLET (FP) PO PRN (12:24)
[2018-09-28] MEDS: ACETAMINOPHEN 325 MG TABLET (FP) PO PRN (21:42)
[2018-09-28] MEDS: METHOCARBAMOL 500 MG TABLET PO PRN (21:42)
[2018-09-28] MEDS: THIAMINE HCL 100 MG TABLET (FP) PO SCH (21:52)
[2018-09-29] MEDS: PRENATAL VITAMINS W/ FOLIC ACID TABLET (FP) PO SCH (10:17)
[2018-09-29] MEDS: IBUPROFEN 400 MG TABLET (FP) PO PRN ×2 (10:18→21:12)
[2018-09-29] MEDS: METHOCARBAMOL 500 MG TABLET PO PRN ×2 (10:18→21:12)
[2018-09-29] MEDS: MAG HYDROX/AL HYDROX/SIMETH 30 ML UNIT-DOSE CUP PO PRN (19:30)
[2018-09-29] MEDS: THIAMINE HCL 100 MG TABLET (FP) PO SCH (21:12)
[2018-09-30] MEDS: PRENATAL VITAMINS W/ FOLIC ACID TABLET (FP) PO SCH (10:03)
[2018-09-30] MEDS: METHOCARBAMOL 500 MG TABLET PO PRN ×2 (10:03→21:33)
[2018-09-30] MEDS: IBUPROFEN 400 MG TABLET (FP) PO PRN ×2 (10:03→21:33)
[2018-09-30] MEDS: THIAMINE HCL 100 MG TABLET (FP) PO SCH (21:32)
[2018-10-01] MEDS: IBUPROFEN 400 MG TABLET (FP) PO PRN ×2 (07:46→21:17)
[2018-10-01] MEDS: PRENATAL VITAMINS W/ FOLIC ACID TABLET (FP) PO SCH (10:22)
--- NOTE | 2018-10-01 14:07 | PN ---
[facility] Progress Note (SOAP) Subjective: Patient to be discharged tomorrow. Objective: A=O x3, No neurological deficits. Lungs clear, Heart rate regular, abd soft, non -tender, non-distended. 10/01/18 14:06 CBC, BMP 09/18/18 14:10 09/18/18 14:10 Vital Signs (72 hours) 09/29/18 09/29/18 09/29/18 00:30 03:30 06:46 Temperature 97.8 F Pulse Rate 61 Respiratory 18 18 18 Rate Blood Pressure 139/94 09/30/18 09/30/18 10/01/18 03:30 06:50 00:30 Temperature 97.8 F Pulse Rate 60 Respiratory 18 18 18 Rate Blood Pressure 142/83 10/01/18 10/01/18 10/01/18 03:30 06:37 09:30 Temperature 97.6 F Pulse Rate 68 77 Respiratory 18 18 18 Rate Blood Pressure 143/76 141/92 Assessment: Medically stable for discharge. Discharge Dx: ETOH abuse, chronic Cocaine Abuse, chronic Cannabis abuse, chronic 10/01/18 14:07 Plan: aftercare at [facility]. Dr. Adams on [facility] primary care.
[2018-10-01] MEDS: METHOCARBAMOL 500 MG TABLET PO PRN (21:15)
[2018-10-01] MEDS: THIAMINE HCL 100 MG TABLET (FP) PO SCH (21:16)
[2018-10-01] MEDS: MAG HYDROX/AL HYDROX/SIMETH 30 ML UNIT-DOSE CUP PO PRN (21:17)
[2018-10-02 06:52] VITALS: BP 121/83; PULSE 67; TEMP 97.3
== END 2018-10-02 08:46 | disposition home or self-care (01) | DRG 772 ==
LOC: YASAS 11:27 → Y3W 14:12
PROVIDERS: ADMIT Neuromusculoskeletal Medicine & OMM; ATTEND Neuromusculoskeletal Medicine & OMM
PROC: HZ42ZZZ Group Counseling for Substance Abuse Treatment, Cognitive-Behavioral (ICD-10-PCS; principal; 2018-09-18)
DX: F10.20 Alcohol dependence, uncomplicated (principal); F14.20 Cocaine dependence, uncomplicated; F12.20 Cannabis dependence, uncomplicated; F17.210 Nicotine dependence, cigarettes, uncomplicated; M25.512 Pain in left shoulder
CPT/HCPCS: 36415; 80053; 81003; 85027; 86593; 87389

== ENCOUNTER 2022-02-06 11:46 | Inpatient (IN) | payer OTHER ==
[2022-02-06 13:46] VITALS: BMI 25.8
[2022-02-06] MEDS ORDERED: ONDANSETRON *ODT* 4 MG TABLET SL PRN (16:21)
[2022-02-06] MEDS ORDERED: guaiFENesin 200 MG/10 ML 10 ML UNIT-DOSE CUPS PO PRN (16:21)
[2022-02-06] MEDS ORDERED: BISMUTH SUBSALICYLATE 524 MG/30 ML PO PRN (16:21)
[2022-02-06] MEDS ORDERED: MAGNESIUM CITRATE 300 ML BOTTLE PO PRN (16:21)
[2022-02-06] MEDS ORDERED: ACETAMINOPHEN 325 MG TABLET (FP) PO PRN ×2 (16:21)
[2022-02-06] MEDS ORDERED: LOPERAMIDE HCL 2 MG CAPSULE PO PRN (16:21)
[2022-02-06] MEDS ORDERED: IBUPROFEN 600 MG TABLET (FP) PO PRN (16:21)
[2022-02-06] MEDS ORDERED: DICYCLOMINE HCL 10 MG CAPSULE PO PRN (16:21)
[2022-02-06] MEDS ORDERED: P-EPHED 60MG/TRIPROLIDI 2.5MG TABLET PO PRN (16:21)
[2022-02-06] MEDS ORDERED: MAGNESIUM HYDROX 2400MG/30ML ORAL SUSPENSION 30 ML CUP PO PRN (16:21)
[2022-02-06] MEDS ORDERED: IBUPROFEN 400 MG TABLET (FP) PO PRN (16:21)
[2022-02-06] MEDS ORDERED: METHOCARBAMOL 500 MG TABLET PO PRN (16:21)
[2022-02-06] MEDS ORDERED: MAG HYDROX/AL HYDROX/SIMETH 30 ML UNIT-DOSE CUP PO PRN (16:21)
[2022-02-06] MEDS ORDERED: BENZOCAINE/MENTHOL (CHLORASEPTIC ) LOZENGE MM PRN (16:21)
[2022-02-06] MEDS: THIAMINE HCL 100 MG TABLET (FP) PO SCH (22:19)
[2022-02-06] MEDS: MELATONIN 5 MG TABLETS PO PRN (22:19)
[2022-02-06] MEDS: hydrOXYzine PAMOATE 25 MG CAPSULE (FP) PO PRN (22:19)
[2022-02-07] MEDS: PRENATAL VITAMINS W/ FOLIC ACID TABLET (FP) PO SCH (09:56)
[2022-02-07 12:24] LABS: HEMATOCRIT 39.7 % (35.4-49); HEMOGLOBIN 12.9 GM/dL (11.7-16.9); MCH 28.7 pg (25.7-33.7); MCHC 32.4 g/dl (32.0-35.9); MEAN CELL VOLUME 88.7 fl (80-96); PLATELET COUNT 242 10^3/uL (134-434); RBC 4.47 M/mm3 (4.00-5.60); RDW 15.4 % (11.9-15.9); WHITE BLOOD COUNT 5.6 K/mm3 (4.0-10.0)
[2022-02-07 12:57] LABS: ALBUMIN 3.4 g/dl (3.4-5.0); BLOOD UREA NITROGEN 16.8 mg/dL (7-18)
[2022-02-07 12:58] LABS: BILIRUBIN,TOTAL 0.5 mg/dL (0.2-1); TOT PROT 6.6 g/dl (6.4-8.2)
[2022-02-07 12:59] LABS: CALCIUM 8.8 mg/dL (8.5-10.1)
[2022-02-07 13:01] LABS: CREATININE 1.1 mg/dL (0.55-1.3)
[2022-02-07] MEDS: hydrOXYzine PAMOATE 25 MG CAPSULE (FP) PO PRN (22:13)
[2022-02-07] MEDS: THIAMINE HCL 100 MG TABLET (FP) PO SCH (22:13)
[2022-02-07] MEDS: MELATONIN 5 MG TABLETS PO PRN (22:13)
[2022-02-08 05:59] VITALS: RESP 18
[2022-02-08 09:05] VITALS: BP 127/73; PULSE 54; TEMP 97.3
[2022-02-08] MEDS: PRENATAL VITAMINS W/ FOLIC ACID TABLET (FP) PO SCH (10:18)
== END 2022-02-08 10:37 | disposition left against medical advice (07) | DRG 770 ==
LOC: YASAS 11:46 → Y3N 16:57 → UNDOADMIN 16:57
PROVIDERS: ADMIT Allergy & Immunology; ATTEND Surgery
PROC: HZ2ZZZZ Detoxification Services for Substance Abuse Treatment (ICD-10-PCS; principal; 2022-02-06)
DX: F10.230 Alcohol dependence with withdrawal, uncomplicated (principal); F14.20 Cocaine dependence, uncomplicated; F12.20 Cannabis dependence, uncomplicated; F17.210 Nicotine dependence, cigarettes, uncomplicated; I10 Essential (primary) hypertension; E78.5 Hyperlipidemia, unspecified; K21.9 Gastro-esophageal reflux disease without esophagitis
CPT/HCPCS: 36415; 80053; 85027; 86780; 87811

== ENCOUNTER 2023-04-06 08:34 | Inpatient (IN) | payer OTHER ==
[2023-04-06] MEDS ORDERED: IBUPROFEN 400 MG TABLET (FP) PO PRN (12:00)
[2023-04-06] MEDS ORDERED: LOPERAMIDE HCL 2 MG CAPSULE PO PRN (12:00)
[2023-04-06] MEDS ORDERED: BENZOCAINE/MENTHOL (CHLORASEPTIC ) LOZENGE MM PRN (12:00)
[2023-04-06] MEDS ORDERED: NALOXONE HCL 0.4 MG/ML VIAL IM PRN (12:00)
[2023-04-06] MEDS ORDERED: BISMUTH SUBSALICYLATE 524 MG/30 ML PO PRN (12:00)
[2023-04-06] MEDS ORDERED: POLYETHYLENE GLYCOL (HEALTHYLAX) 3350 17 GM PACKET PO PRN (12:00)
[2023-04-06] MEDS ORDERED: BENZONATATE 200 MG CAPSULE PO PRN (12:00)
[2023-04-06] MEDS ORDERED: hydrOXYzine PAMOATE 25 MG CAPSULE (FP) PO PRN (12:00)
[2023-04-06] MEDS ORDERED: guaiFENesin 600 MG TABLET.ER (FP) PO PRN (12:00)
[2023-04-06] MEDS ORDERED: MAG HYDROX/AL HYDROX/SIMETH 30 ML UNIT-DOSE CUP PO PRN (12:00)
[2023-04-06] MEDS ORDERED: MAGNESIUM HYDROX 2400MG/30ML ORAL SUSPENSION 30 ML CUP PO PRN (12:00)
[2023-04-06] MEDS ORDERED: ACETAMINOPHEN 325 MG TABLET (FP) PO PRN (12:00)
[2023-04-06] MEDS ORDERED: ONDANSETRON *ODT* 4 MG TABLET SL PRN (12:00)
[2023-04-06] MEDS ORDERED: NALOXONE HCL (KLOXXADO) 8 MG SPRAY NS PRN (12:00)
[2023-04-06] MEDS ORDERED: DICYCLOMINE HCL 10 MG CAPSULE PO PRN (12:00)
[2023-04-06] MEDS ORDERED: IBUPROFEN 600 MG TABLET (FP) PO PRN (12:00)
[2023-04-06 12:28] VITALS: BMI 23.3
[2023-04-06] MEDS: METHOCARBAMOL 500 MG TABLET PO PRN (17:19)
[2023-04-06] MEDS: MELATONIN 5 MG TABLETS PO SCH (22:05)
[2023-04-06] MEDS: THIAMINE HCL 100 MG TABLET (FP) PO SCH (22:06)
[2023-04-07] MEDS: PRENATAL VITAMINS W/ FOLIC ACID TABLET (FP) PO SCH (10:23)
[2023-04-07 10:24] LABS: HEMATOCRIT 42.8 % (35.4-49); HEMOGLOBIN 13.6 GM/dL (11.7-16.9); MCH 28.5 pg (25.7-33.7); MCHC 31.9 g/dl (32.0-35.9); MEAN CELL VOLUME 89.4 fl (80-96); MEAN PLT VOLUME 9.4 fl (7.5-11.1); PLATELET COUNT 305 10^3/uL (134-434); RBC 4.78 M/mm3 (4.00-5.60); RDW 14.9 % (11.9-15.9); WHITE BLOOD COUNT 4.9 K/mm3 (4.0-10.0)
[2023-04-07] MEDS: METHOCARBAMOL 500 MG TABLET PO PRN (17:13)
[2023-04-07] MEDS: MELATONIN 5 MG TABLETS PO SCH (22:05)
[2023-04-07] MEDS: THIAMINE HCL 100 MG TABLET (FP) PO SCH (22:06)
[2023-04-07 22:55] VITALS: RESP 18
[2023-04-08 09:17] VITALS: BP 147/97; PULSE 78; TEMP 96.9
[2023-04-08] MEDS: PRENATAL VITAMINS W/ FOLIC ACID TABLET (FP) PO SCH (09:45)
== END 2023-04-08 09:15 | disposition home or self-care (01) | DRG 774 ==
LOC: YASAS 08:34 → Y3N 12:10 → Y6N 12:43
PROVIDERS: ADMIT Allergy & Immunology; ATTEND Surgery
PROC: HZ2ZZZZ Detoxification Services for Substance Abuse Treatment (ICD-10-PCS; principal; 2023-04-06)
DX: F10.20 Alcohol dependence, uncomplicated (principal); F14.20 Cocaine dependence, uncomplicated; Z72.0 Tobacco use; E78.5 Hyperlipidemia, unspecified; I10 Essential (primary) hypertension; K21.9 Gastro-esophageal reflux disease without esophagitis
CPT/HCPCS: 36415; 85027; 86780; 87635